=== PATIENT | male | born 1965 | race Caucasian/White ===

== ENCOUNTER 2016-11-07 15:32 | Emergency (ER) | payer OTHER ==
[~2016-11-07] VITALS: Ht 177.8 cm; Wt 83.9 kg
[~2016-11-07 15:32] MED LIST: DILAUDID2 M1 PO; ELIQUIS5 M1 PO; FLOVENT HFA10.6 GM INH; MEDROL DOSEPAK1 PAC PO; OXYCODONE HCL30 M1 PO; PROAIR HFA8.5 GM INH; TAMSULOSIN HCL0.4 M1 PO; VENTOLIN1 PUF INH; VICODIN 300 MG-1 TAB PO
[2016-11-07 17:38] LABS: ABSOLUTE BASOPHIL COUNT 0 /CUMM (0.0-0.2); ABSOLUTE EOSINOPHIL COUNT 0.1 /CUMM (0.0-0.7); ABSOLUTE LYMPH COUNT 2.7 /CUMM (1.2-3.4); ABSOLUTE MONOCYTE COUNT 0.4 /CUMM (0.10-0.60); BASOPHIL % 0.3 % (0.0-2.0); EOSINOPHIL % 1.1 % (0-5); GRANULOCYTE % 48.5 % (42.2-75.2); HEMATOCRIT 44.6 % (42-52); MEAN CORPUSCULAR HGB 33.6 PG (27.0-31.0); MEAN CORPUSCULAR HGB CONC 33.9 G/DL (33.0-37.0); MEAN CORPUSCULAR VOLUME 99.1 FL (80.0-94.0); MEAN PLATELET VOLUME 7.7 FL (7.4-10.4); PLATELET COUNT 267 /CUMM (130-400); RBC DISTRIBUTION WIDTH 13.4 % (11.5-14.5); WHITE BLOOD CELL COUNT 6.3 /CUMM (4.8-10.8)
--- NOTE | 2016-11-07 17:42 | CT SCAN REPORT ---
EXAMINATION: CT ABDOMEN AND PELVIS WITHOUT CONTRAST CLINICAL INFORMATION: Large transverse incision. Small hard nodules felt. Recent abdominal surgery for filter removal. COMPARISON: CT from 07/24/2016 and 09/04/2016 TECHNIQUE: Multidetector volumetric imaging was performed from the superior aspect of the liver through the pubic symphysis. Sagittal and coronal reformatted images were obtained on the technologist's workstation. DLP: 349 mGy-cm FINDINGS: LUNG BASES: Minimal bibasilar atelectasis. The visualized cardiac structures are unremarkable. LIVER, GALLBLADDER, AND BILIARY TREE: The liver is normal in size, shape, and attenuation. No focal hepatic lesion or biliary ductal dilatation is present. The gallbladder is unremarkable with no evidence of radiopaque gallstones, gallbladder wall thickening, or obvious pericholecystic inflammatory changes. PANCREAS: Unremarkable. SPLEEN: Unremarkable. ADRENAL GLANDS: Unremarkable. KIDNEYS AND URETERS: The kidneys are normal in size, shape, and attenuation. No hydronephrosis, hydroureter, or calculi seen. No perinephric stranding. BLADDER: Unremarkable. GASTROINTESTINAL TRACT: The stomach and small bowel appear unremarkable. No dilated loops of bowel or evidence of obstruction. No colonic wall thickening or inflammatory changes. Normal appendix. No free air or free fluid. ABDOMINAL WALL: Stranding is seen from recent surgery. No abdominal wall hernia. LYMPH NODES: There is new nodularity adjacent to the inferior vena cava. There is a 1.8 x 1.5 cm nodule on series 2 image 37, which is the most prominent. More proximally, immediately inferior to the right renal artery, there is a nodule measuring 1.1 cm on series 2 image 29. This is a nonspecific finding. Additional lymph nodes which are seen on the prior study which are not pathologically enlarged remain unchanged. VASCULAR: Mild atherosclerotic calcifications. The previous IVC filter has been removed. PELVIC VISCERA: The prostate is prominent measuring 5.3 cm transverse. The seminal vesicles are unremarkable. OSSEOUS STRUCTURES: No acute or suspicious osseous abnormality. Mild degenerative changes of the spine. IMPRESSION: Status post removal of the IVC filter. There are soft tissue nodule seen adjacent to the inferior vena cava which are new from the prior CT. These are of uncertain etiology. While this could represent lymphadenopathy, there were no lymph nodes seen in this location on the prior studies. This may represent fibrous reaction to the previous IVC filter tongs which extended beyond the confines of the vena cava. No additional evidence of lymphadenopathy. Based on clinical scenario follow-up could be performed. Tissue sampling could also be performed for more definitive clarification.
[2016-11-07 18:09] VITALS: BP 131/78
[2016-11-07] MEDS ORDERED: PERCOCET 5-3251 EACH PO (18:32)
--- NOTE | 2016-11-07 18:33 | ED GI/GU/ABDOMINAL COMPLAINT ---
History of Present Illness General Chief Complaint: General Adult Stated Complaint: WOUND ? INFECTION Source: patient Exam Limitations: no limitations Vital Signs & Intake/Output Vital Signs & Intake/Output Vital Signs Date Time Temp Pulse Resp B/P Pulse O2 O2 Flow FiO2 Ox Delivery Rate 11/07 1809 86 18 131/78 97 Room Air 11/07 1541 97.2 91 20 149/90 97 Room Air Room Air Allergies Coded Allergies: Gadolinium-Containing Contrast Medi (TONGUE SWELLS, HIVES, SWEAT - UNSURE WHAT TYPE OF IV DYE 09/04/16) Iodinated Contrast Media - Oral and (TONGUE SWELL, HIVES, SWEAT - UNSURE OF WHAT TYPE OF IV DYE 09/04/16) Penicillins (UNKNOWN PER PT HAD A KID 09/04/16) Reconcile Medications Apixaban (Eliquis) 5 MG TABLET 1 TAB PO BID BLOOD THINNER (Reported) Fluticasone Propionate (Flovent Hfa) 44 MCG AER.W.ADAP 2 PUF INH BID ASTHMA ( Reported) Oxycodone HCl/Acetaminophen (Percocet 5-325 MG Tablet) 5 MG-325 MG TABLET 1-2 TAB PO Q6P PRN pain Triage Note: PT TO ED WITH C/O "I HAVE A NARESH FILTER REMOVED A COUPLE OF MONTHS AGO, AND IT'S NOT HEALING RIGHT, THERE IS A LUMP THERE". NO REDNESS OR SWELLING NOTED TO IN INCISION WHICH RUN HORIZONTALLY ACROSS ENTIRE ABD, SMALL SCAB NOTED TO RIGHT END OF INCISION LINE, PT STATING THERE IS A WHITE/YELLOWISH FLUID COMING OUT OF THE LEFT END OF THE INCISION, NO DRAINAGE NOTED IN TRIAGE. PT DENIES FEVER AT HOME. Triage Nurses Notes Reviewed? yes Onset: Abrupt Duration: week(s):, constant, continues in ED Timing: recent history No Modifying Factors: none HPI: 51-year-old male comes into emergency room for further evaluation of abdominal pain has been going on for many months. Patient reports that 2 months ago he had surgery on his abdomen. Patient reports that for 6 months prior to that human experiencing abdominal pain and testicle pain and they thought it was from the IVC filters. It was determined that the patient would undergo surgery. Patient has a large transabdominal scar from the surgery that he had back in early September of this year to remove the filters. Patient reports that since the surgery is been experiencing still in his abdomen and over the surgical site is well. Patient reports for the past few weeks he noticed some small bumps that have popped up along the incision site. Denies any fever chills vomiting. Passing his bowels. Patient reports she still having the persistent abdominal pain that he was experiencing prior to the surgery as well. (BAYRON ZACARIAS) Past History Travel History Traveled to [place] past 21 day No Medical History Any Pertinent Medical History? 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 No (BAYRON ZACARIAS) Review of Systems Review of Systems Constitutional: Reports: no symptoms. EENTM: Reports: no symptoms. Respiratory: Reports: no symptoms. Cardiovascular: Reports: no symptoms. GI: Reports: see HPI. Genitourinary: Reports: no symptoms. Musculoskeletal: Reports: see HPI. Skin: Reports: no symptoms. Neurological/Psychological: Reports: no symptoms. Hematologic/Endocrine: Reports: no symptoms. Immunologic/Allergic: Reports: no symptoms. All Other Systems: Reviewed and Negative (BAYRON ZACARIAS) Physical Exam Physical Exam General Appearance: well developed/nourished, no apparent distress, alert, awake Head: atraumatic, normal appearance Eyes: Bilateral: normal appearance, EOMI. Ears, Nose, Throat, Mouth: hearing grossly normal, moist mucous membrane Neck: normal inspection, full range of motion Respiratory: normal breath sounds, no respiratory distress Cardiovascular: regular rate/rhythm Gastrointestinal: soft, LARGE TRANSABDOMINAL INCISION SITE, MULTIPLE SMALL HARD NODULES FELT OVER INCISION SITE, NO ERYTHEMA, NO DISCHARGE, ABDOMEN SOFT, NO GUARDING, Back: normal inspection Extremities: normal range of motion Neurologic/Psych: awake, alert, oriented x 3, normal gait, normal mood/affect Skin: intact, normal color Core Measures ACS in differential dx? No Severe Sepsis Present: No Septic Shock Present: No (BAYRON ZACARIAS) Progress Differential Diagnosis: appendicitis, biliary colic, cholecystitis, diverticulitis, lymph node, fibrous tissue, keloid,abscess, Plan of Care: Orders Procedure Date/time Status COMPREHENSIVE METABOLIC PANEL 11/07 1706 Complete CBC WITHOUT DIFFERENTIAL 11/07 1706 Complete Laboratory Tests 11/07/16 1730: Anion Gap 14, Estimated GFR > 60, BUN/Creatinine Ratio 13.8, Glucose 88, Calcium 9.8, Total Bilirubin 0.6, AST 29, ALT 26, Alkaline Phosphatase 62, Total Protein 7.2, Albumin 4.1, Globulin 3.1, Albumin/Globulin Ratio 1.3, CBC w Diff NO MAN DIFF REQ, RBC 4.50 L, MCV 99.1 H, MCH 33.6 H, RDW 13.4, MPV 7.7, Gran % 48.5, Lymphocytes % 43.8, Monocytes % 6.3, Eosinophils % 1.1, Basophils % 0.3, Absolute Granulocytes 3.0, Absolute Lymphocytes 2.7, Absolute Monocytes 0.4, Absolute Eosinophils 0.1, Absolute Basophils 0, PUBS MCHC 33.9 Diagnostic Imaging: Viewed by Me: CT Scan. Discussed w/RAD: CT Scan. Radiology Impression: SERVICE DATE: 11/07/16 EXAM TYPE: CAT - CT ABD & PELVIS W/O IV CONTRAS EXAMINATION: CT ABDOMEN AND PELVIS WITHOUT CONTRAST CLINICAL INFORMATION: Large transverse incision. Small hard nodules felt. Recent abdominal surgery for filter removal. COMPARISON: CT from 07/24/2016 and 2015 TECHNIQUE: Multidetector volumetric imaging was performed from the superior aspect of the liver through the pubic symphysis. Sagittal and coronal reformatted images were obtained on the technologist's workstation. DLP: 349 mGy -cm FINDINGS: LUNG BASES: Minimal bibasilar atelectasis. The visualized cardiac structures are unremarkable. LIVER, GALLBLADDER, AND BILIARY TREE: The liver is normal in size, shape, and attenuation. No focal hepatic lesion or biliary ductal dilatation is present. The gallbladder is unremarkable with no evidence of radiopaque gallstones, gallbladder wall thickening, or obvious pericholecystic inflammatory changes. PANCREAS: Unremarkable. SPLEEN: Unremarkable. ADRENAL GLANDS: Unremarkable. KIDNEYS AND URETERS: The kidneys are normal in size, shape, and attenuation. No hydronephrosis, hydroureter, or calculi seen. No perinephric stranding. BLADDER: Unremarkable. GASTROINTESTINAL TRACT: The stomach and small bowel appear unremarkable. No dilated loops of bowel or evidence of obstruction. No colonic wall thickening or inflammatory changes. Normal appendix. No free air or free fluid. ABDOMINAL WALL: Stranding is seen from recent surgery. No abdominal wall hernia. LYMPH NODES: There is new nodularity adjacent to the inferior vena cava. There is a 1.8 x 1.5 cm nodule on series 2 image 37, which is the most prominent. More proximally, immediately inferior to the right renal artery, there is a nodule measuring 1.1 cm on series 2 image 29. This is a nonspecific finding. Additional lymph nodes which are seen on the prior study which are not pathologically enlarged remain unchanged. VASCULAR: Mild atherosclerotic calcifications. The previous IVC filter has been removed. PELVIC VISCERA: The prostate is prominent measuring 5.3 cm transverse. The seminal vesicles are unremarkable. OSSEOUS STRUCTURES: No acute or suspicious osseous abnormality. Mild degenerative changes of the spine. IMPRESSION: Status post removal of the IVC filter. There are soft tissue nodule seen adjacent to the inferior vena cava which are new from the prior CT. These are of uncertain etiology. While this could represent lymphadenopathy, there were no lymph nodes seen in this location on the prior studies. This may represent fibrous reaction to the previous IVC filter tongs which extended beyond the confines of the vena cava. No additional evidence of lymphadenopathy. Based on clinical scenario follow-up could be performed. Tissue sampling could also be performed for more definitive clarification. Initial ED EKG: none (BAYRON ZACARIAS) Departure Departure Disposition: HOME OR SELF CARE Condition: Stable Clinical Impression Primary Impression: Abdominal pain Secondary Impressions: Multiple skin nodules Referrals: SRINATH DAO,VERN Coe (PCP/Family) Additional Instructions: Follow-up with your surgeon that performed the surgery. Take Percocet as prescribed. Return to the emergency room immediately if any other concerns worsening symptoms. Please go over all results of today's visit with your primary care doctor. Contact your primary care doctor to let them know you were here in the emergency room. There may be nonspecific findings which may not be related to your visit today here in the emergency room but may require further evaluation and chronic monitoring by your primary care doctor. If you had a laceration today the chance of foreign body always remains. You should follow-up with your primary care doctor for recheck in 3-5 days for a wound check. If you had an x-ray done there is a chance that a fracture could have been missed on initial read and you should follow-up with your primary care doctor for repeat x-rays if symptoms persist. If your blood pressure was elevated here in the emergency room please have rechecked by her primary care doctor within the next 48 hours by your primary care doctor. If you were prescribed a narcotic here in the emergency room or any type of controlled substances you're not allowed to drive while taking this medication or operate any type of heavy machinery. Narcotics can make you feel lightheaded dizziness nausea and can cause constipation. You may need to orange picker machine operator a stool softener. Thank you for choosing [facility] emergency room. Please return to the emergency room immediately if you have any other concerns worsening of symptoms. Departure Forms: Customer Survey General Discharge Information Prescriptions: Current Visit Scripts Oxycodone HCl/Acetaminophen (Percocet 5-325 MG Tablet) 1-2 TAB PO Q6P PRN pain #15 TAB Comments 11/07/2016 6:58:55 PM Patient clinically looks well. Patient is nontoxic-appearing. Patient was seen and evaluated by Dr. Segundo. At this time patient is safe to be discharged and follow up with primary care doctor as well as surgeon that performed the surgery. He has a follow-up appointment on Saturday. Denies any fever chills vomiting. Clinically looks well and is in no apparent distress upon discharge. Denies any other associated symptoms at this time. (BAYRON ZACARIAS) PA/ENVIRONMENTAL HEALTH TECHNICIAN Co-Sign Statement Statement: ED Attending supervision documentation- [X] I saw and evaluated the patient. I have also reviewed all the pertinent lab results and diagnostic results. I agree with the findings and the plan of care as documented in the PA's/ENVIRONMENTAL HEALTH TECHNICIAN's documentation. [] I have reviewed the ED Record and agree with the PA's/ENVIRONMENTAL HEALTH TECHNICIAN's documentation. [] Additions or exceptions (if any) to the PAs/ENVIRONMENTAL HEALTH TECHNICIAN's note and plan are summarized below: [] (DONAVON SEGUNDO DO
== END 2016-11-07 18:51 ==
LOC: ERH 15:32
PROVIDERS: Physician Assistant Medical
DX: L98.9 Disorder of the skin and subcutaneous tissue, unspecified (principal); R10.9 Unspecified abdominal pain
CPT/HCPCS: 74176; 96372

== ENCOUNTER 2017-11-17 10:48 | Emergency (ER) | payer OTHER ==
[~2017-11-17] VITALS: Ht 177.8 cm; Wt 83.9 kg
[~2017-11-17 10:48] MED LIST changes: +PERCOCET 5-3251 EACH PO
--- NOTE | 2017-11-17 11:31 | ED GENERAL ADULT ---
History of Present Illness General Chief Complaint: General Adult Stated Complaint: MULTIPLE COMPLAINTS Source: patient Exam Limitations: no limitations Vital Signs & Intake/Output Vital Signs & Intake/Output Vital Signs Date Time Temp Pulse Resp B/P B/P Pulse O2 O2 Flow FiO2 Mean Ox Delivery Rate 11/17 1246 97.5 86 18 125/72 97 11/17 1128 97 11/17 1051 97.9 98 18 170/98 97 Room Air Allergies Coded Allergies: Gadolinium-Containing Contrast Medi (TONGUE SWELLS, HIVES, SWEAT - UNSURE WHAT TYPE OF IV DYE 09/04/16) Iodinated Contrast- Oral and IV Dye (IODINATED CONTRAST MEDIA - ORAL AND) ( TONGUE SWELL, HIVES, SWEAT - UNSURE OF WHAT TYPE OF IV DYE 09/04/16) Penicillins (UNKNOWN PER PT HAD A KID 09/04/16) Reconcile Medications Apixaban (Eliquis) 5 MG TABLET 1 TAB PO BID BLOOD THINNER (Reported) Ciprofloxacin HCl (Cipro) 500 MG TABLET 1 TAB PO BID uti Fluticasone Propionate (Flovent Hfa) 44 MCG AER.W.ADAP 2 PUF INH BID ASTHMA ( Reported) Neomycin/Polymyxin B Sulf/Hc (Rwztnkdq-Iiaysjbln-Ww Ear Susp) 3.5 MG/ML-10,000 UNIT/ML-1 % DROPS.SUSP 4 GTT OT TID otitis use for 7 days in left ear Oxycodone HCl/Acetaminophen (Percocet 5-325 MG Tablet) 5 MG-325 MG TABLET 1-2 TAB PO Q6P PRN pain Triage Note: PT TO TRIAGE WITH MULTIPLE COMPLAINTS, STATES THAT HE HAS BEEN HAVING LOW BACK PAIN X FEW DAYS, L EAR POPPING AND PAIN X 1 WEEK. STATES THAT HE HAS "NOT URINATED IN A WEEK" BUT DENIES ABD PAIN/N/V/D . Triage Nurses Notes Reviewed? yes Onset: Gradual Duration: day(s): Timing: recent history Injury Environment: home Severity: moderate HPI: 52-year-old male presents emergency department complaining of difficulty urinating for the past 4 days. Patient states that he feels as though he has to urinate however he will only urinate drops. Patient also reporting dysuria when he urinates. He feels bladder fullness. Patient also complaining of pain in left ear and pressure behind left ear for the past week. Patient has a history of genital herpes, he has had one skin lesion to left thigh which is been present for about 6 weeks, he is unsure if this is related to his urinary issues. Patient denies fevers, chills, vomiting, abdominal pain, diarrhea, constipation, testicular pain, penile discharge, new sexual partner. (Shira Bermeo) Past History Travel History Traveled to [place] past 21 day No Medical History Any Pertinent Medical History? 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 No (Shira Bermeo) Review of Systems Review of Systems Constitutional: Reports: no symptoms. EENTM: Reports: see HPI. Respiratory: Reports: no symptoms. Cardiovascular: Reports: no symptoms. GI: Reports: see HPI. Genitourinary: Reports: see HPI. Musculoskeletal: Reports: no symptoms. Skin: Reports: no symptoms. Neurological/Psychological: Reports: no symptoms. Hematologic/Endocrine: Reports: no symptoms. Immunologic/Allergic: Reports: no symptoms. All Other Systems: Reviewed and Negative (Shira Bermeo) Physical Exam Physical Exam General Appearance: well developed/nourished, no apparent distress, alert, awake Head: atraumatic, normal appearance Eyes: Bilateral: normal appearance. Ears, Nose, Throat: normal pharynx, hearing grossly normal, DEBRIS PRESENT IN LEFT EAR CANAL HOWEVER TM WNL, NO ERYTHEMA Neck: normal inspection, supple, full range of motion Respiratory: normal breath sounds, no respiratory distress, lungs clear Cardiovascular: regular rate/rhythm Gastrointestinal: normal bowel sounds, soft, non-tender, no organomegaly Back: normal inspection, normal range of motion, NO CVA TENDERNESS Extremities: normal inspection, normal range of motion Neurologic/Psych: awake, alert, oriented x 3 Skin: intact, normal color, warm/dry Core Measures ACS in differential dx? No CVA/TIA Diagnosis: No Sepsis Present: No Sepsis Focused Exam Completed? No (Shira Bermeole) Progress Differential Diagnoses I considered the following diagnoses in my evaluation of the patient: [Urinary retention, UTI, pyelonephritis, otitis media, otitis externa, sinusitis, BPH, malignancy] Plan of Care: Orders Procedure Date/time Status CULTURE,URINE 11/17 1147 Active URINALYSIS 11/17 114 Complete Laboratory Tests 11/17/17 1153: Urine Color YEL, Urine Clarity CLDY H, Urine pH 6.5, Ur Specific [place] 1.020, Urine Protein 100 H, Urine Ketones TRACE H, Urine Nitrite NEG, Urine Bilirubin NEG@ICTO, Urine Urobilinogen 0.2, Ur Leukocyte Esterase LARGE H, Ur Microscopic SEDIMENT EXAMINED, Urine RBC 1-3, Urine WBC > 75 H, Urine Bacteria MOD H, Urine Hemoglobin MOD H, Urine Glucose NEG Microbiology 11/17 1153 URINE ROUT: Urine Culture - RECD UA shows signs of urinary tract infection. Patient's bladder scan with 30ML urine present, no significant urinary retention post voiding. Patient's difficulty urinating and dysuria likely related to acute UTI. Patient started on Cipro antibiotics given urology follow-up. Patient started on eardrops regarding pain and debris's in left ear canal. He will have this ear rechecked by his primary care doctor in the next 2 weeks. The patient is in no acute distress, urinating here in the emergency Department, vital signs are stable, no abdominal tenderness. The patient agrees with the plan of care. Patient discussed with Dr. Willard who agrees with this plan. Initial ED EKG: none (Karlie VALADEZ,Shira Potter) Departure Departure Disposition: HOME OR SELF CARE Condition: Stable Clinical Impression Primary Impression: UTI (urinary tract infection) Secondary Impressions: Ear pain, left Referrals: Marry Hernandes MD (PCP/Family) Umesh Briscoe MD Additional Instructions: Begin antibiotics today, take full course of antibiotics. Use ear drops as prescribed for 1 week. When you see your primary care doctor in the next few weeks have them recheck your ear. You were given a referral to a urologist to follow up with next week, call the office to make an appointment. With any worsening symptoms such as increasing pain, inability to urinate, fevers please return to the emergency department. Please note that there might be incidental findings in your evaluation that are unrelated to the current emergency department visit. Please notify your primary care doctor about this emergency department visit in order to obtain and review all of the testing performed so that these incidental findings can be monitored as needed. If you had an x-ray performed, please understand that some fractures may not be seen on the initial set of x-rays. If your symptoms persist you might need a repeat set of x-rays to check for such a fracture. If you had a laceration evaluated, please understand that foreign bodies such as glass or wood may not be visible to the naked eye or on plain x-rays. If the wound becomes red, swollen, increasingly more painful or if there is any drainage from the wound, please have it reevaluated by a physician for the possibility of a retained foreign body. If you're unable to follow up as outlined in the discharge instructions please return to the emergency department. Thank you for choosing the [facility] Emergency Department for your care. It was a pleasure to serve you today. Departure Forms: Customer Survey General Discharge Information Prescriptions: Current Visit Scripts Ciprofloxacin HCl (Cipro) 1 TAB PO BID #14 TAB Neomycin/Polymyxin B Sulf/Hc (Iamoranf-Usfjjwync-Ra Ear Susp) 4 GTT OT TID #10 ML use for 7 days in left ear (Karlie VALADEZ,Shira Potter) PA/ASSISTANT BUSINESS MANAGER Co-Sign Statement Statement: ED Attending supervision documentation- [] I saw and evaluated the patient. I have also reviewed all the pertinent lab results and diagnostic results. I agree with the findings and the plan of care as documented in the PA's/ASSISTANT BUSINESS MANAGER's documentation. [X] I have reviewed the ED Record and agree with the PA's/ASSISTANT BUSINESS MANAGER's documentation. [] Additions or exceptions (if any) to the PAs/ASSISTANT BUSINESS MANAGER's note and plan are summarized below: [] (Sudheer DAO,Arias Will) Critical Care Note Critical Care Note Critical Care Time: non-applicable (Shira Bermeo)
[2017-11-17] MEDS ORDERED: CIPRO500 M1 PO (12:41)
[2017-11-17] MEDS ORDERED: NEOMYCIN-POLYMY10 M1 OT (12:41)
[2017-11-17 12:46] VITALS: BP 125/72
== END 2017-11-17 12:48 ==
LOC: ERH 10:48
DX: N39.0 Urinary tract infection, site not specified (principal); H92.02 Otalgia, left ear
CPT/HCPCS: 81001; 87086; 87147